=== PATIENT | female | born 1995 | race Caucasian/White ===

== ENCOUNTER 2024-06-12 10:00 | Emergency (ER) | payer OTHER, SELFPAY ==
[2024-06-12 10:02] VITALS: BP 126/79
--- NOTE | 2024-06-12 10:43 | ED.GENMED ---
History of Present Illness
<Shayy Saucedo PA-C - Last Filed: 06/12/24 17:49>
General
Chief Complaint: Crisis Evaluation
Source: patient
Exam Limitations: none
Time Seen by Provider: 06/12/24 10:07
Nursing documentation reviewed up to this point in time: agreed with
History of Present Illness
History of Present Illness:
Patient is a 28-year-old female with history of bipolar disorder, depression, schizophrenia presenting to the emergency department from [facility] for suicidal thoughts. Patient states that she is generally overwhelmed and ashamed of her
history of drug use. She does not feel like getting up in the morning. Patient states that she has been hearing voices telling her to kill herself. Patient does have a plan to overdose on fentanyl. Patient states that she is not currently using
drugs although does not know where to obtain them. Patient would like to be placed inpatient for treatment.
Patient has been clean for the past 2 years from drug use.
Patient has no prior suicidal attempts. She has been inpatient a few times in the past, most recently at [facility].
Last menstrual period 3 weeks ago.
Review of Systems
<Shayy Saucedo PA-C - Last Filed: 06/12/24 17:49>
Review of Systems
Allergies reviewed?: Yes
All Other Systems: ROS reviewed and negative except as documented in HPI and ROS
Phy Exam
<Shayy Saucedo PA-C - Last Filed: 06/12/24 17:49>
Physical Exam
Physical Exam:
Vitals: Patient's vital signs are stable. Afebrile
General: Patient is well appearing, no acute distress
Skin: Warm and dry, no rashes or lesions
Head: Normocephalic, atraumatic
Throat: Protecting airway
Neck: Normal ROM, no cervical spine tenderness
Cardiac: Regular rate and rhythm. Normal heart sounds
Pulm: No apparent respiratory distress. Lungs clear bilaterally.
Abdomen: Nondistended
Extremities: No evidence of cyanosis or edema
Neuro: Grossly intact
Psychiatric: Flat affect.
Course
<Shayy Saucedo PA-C - Last Filed: 06/12/24 17:49>
Orders/Labs/Results
Orders:
Orders
06/12/24 10:05
Crisis Consult Urgent
Reason for Consult: SI
06/12/24 10:32
1:1 Observation - Suicide/ Violent Behavior As Directed
06/12/24 10:38
Test Result ONCE
06/12/24 10:42
Fentanyl, Urine Urgent
HCG, Urine Qualitative Screen Urgent
Date Specimen was Collected: 06/12/24
Time Specimen was Collected: 10:38
Urinalysis Reflex To Culture Urgent
Date Specimen was Collected: 06/12/24
Time Specimen was Collected: 10:38
Urine Drug Abuse Screen Urgent
Date Specimen was Collected: 06/12/24
Time Specimen was Collected: 10:38
Urine Microscopic Reflex Cult Urgent
06/12/24 15:31
Nicotine [Nicoderm Transdermal] 14 mg TRANSDERM NOW STA
Abnormal Lab Results
06/12/24
10:42
Urine Ketones Trace A
(Negative)
Urine Bilirubin 1+ A
(Negative)
Urine Urobilinogen 2+ A
(Neg - 1+)
Leukocyte Esterase Rfl Trace A
(Negative)
Urine Bacteria (Reflex) Few A
(Negative)
Ur Buprenorphine Positive H
(Negative)
Ur Tricyclics Screen Positive H
(Negative)
U Benzodiazepines Scrn Positive H
(Negative)
Vital Signs
Initial and Last Documented VS:
Initial Vital Signs
Temp Pulse Resp BP Pulse Ox
99.4 F 103 18 126/79 95
06/12/24 10:02 06/12/24 10:02 06/12/24 10:02 06/12/24 10:02 06/12/24 10:02
Last Documented Vital Signs
Temp Pulse Resp BP Pulse Ox
98.5 F 95 17 129/76 97
06/12/24 16:00 06/12/24 16:00 06/12/24 16:00 06/12/24 16:00 06/12/24 16:00
<Tab Medley MD - Last Filed: 06/12/24 13:39>
Orders/Labs/Results
Orders:
Orders
06/12/24 10:05
Crisis Consult Urgent
Reason for Consult: SI
06/12/24 10:32
1:1 Observation - Suicide/ Violent Behavior As Directed
06/12/24 10:38
Test Result ONCE
06/12/24 10:42
Fentanyl, Urine Urgent
HCG, Urine Qualitative Screen Urgent
Date Specimen was Collected: 06/12/24
Time Specimen was Collected: 10:38
Urinalysis Reflex To Culture Urgent
Date Specimen was Collected: 06/12/24
Time Specimen was Collected: 10:38
Urine Drug Abuse Screen Urgent
Date Specimen was Collected: 06/12/24
Time Specimen was Collected: 10:38
Urine Microscopic Reflex Cult Urgent
06/12/24 15:31
Nicotine [Nicoderm Transdermal] 14 mg TRANSDERM NOW STA
Abnormal Lab Results
06/12/24
10:42
Urine Ketones Trace A
(Negative)
Urine Bilirubin 1+ A
(Negative)
Urine Urobilinogen 2+ A
(Neg - 1+)
Leukocyte Esterase Rfl Trace A
(Negative)
Urine Bacteria (Reflex) Few A
(Negative)
Ur Buprenorphine Positive H
(Negative)
Ur Tricyclics Screen Positive H
(Negative)
U Benzodiazepines Scrn Positive H
(Negative)
Vital Signs
Initial and Last Documented VS:
Initial Vital Signs
Temp Pulse Resp BP Pulse Ox
99.4 F 103 18 126/79 95
06/12/24 10:02 06/12/24 10:02 06/12/24 10:02 06/12/24 10:02 06/12/24 10:02
Last Documented Vital Signs
Temp Pulse Resp BP Pulse Ox
98.5 F 95 17 129/76 97
06/12/24 16:00 06/12/24 16:00 06/12/24 16:00 06/12/24 16:00 06/12/24 16:00
<Shayy Saucedo PA-C - Last Filed: 06/12/24 17:49>
MDM/Problems Addressed
Differential Diagnosis Includes:
Not limited to: Suicidal ideation, depression, etc
MDM/Problems Addressed:
28-year-old female with history as documented presenting with active suicidal ideations. Patient does report thoughts of suicide with plan to overdose. Patient is hearing voices telling her to kill herself. Patient seeking inpatient
hospitalization. No past suicidal attempts although she has been inpatient for treatment in the past. No homicidal thoughts. Vitals stable. Exam as above. Patient is actively suicidal and I do deem her as a risk to herself. She will require
inpatient treatment. Crisis consult placed. Patient has a 1:1 ordered and will be a safety hold in the department. Patient currently voluntarily seeking inpatient treatment, if this changes will initiate filing of 302. Will closely monitor and
reassess. Disposition pending placement.
Chronic conditions affecting care:
Bipolar disorder, depression, schizophrenia
Acute Exacerbation and/or Progression of Chronic Illness:
Acutely suicidal
<Shayy Saucedo PA-C - Last Filed: 06/12/24 17:49>
*Pulse Oximetry
Patient hypoxic: no
*EKG
Interpreted by ED Provider?: NA
*Cork Insulation Setter Interpretation
Rate: Cork Insulation Setter- N/A
*Critical Care Note
Total Time (30-74mins, 75-104mins- exclusive of procedures): Not Applicable
<Shayy Saucedo PA-C - Last Filed: 06/12/24 17:49>
Update Note
Update Note:
Update 5:47 PM: Patient accepted to [facility]. Stable for discharge.
ED Attending Note
<Shayy Saucedo PA-C - Last Filed: 06/12/24 17:49>
-
Portions of this chart may have been created with voice recognition software.� Occasional wrong word or��sound alike� substitutions may have occurred due to the inherent limitations of voice recognition software.
<Tab Medley MD - Last Filed: 06/12/24 13:39>
ED Attending Note
Patient seen and examined by attending physician: Yes
ED Attending Note:
I have seen and evaluated the patient with a [id number] encounter. I have spoken to the advance practicer provider and involved in the medical history, the physical exam, medical decision making.
Evaluation and management service: agree unless noted differently below.
Results interpretation: agree unless noted differently below.
Focused HPI: 28-year-old female with history as documented presents to the ER for evaluation of depression and suicidal ideation. Patient reports that she has been depressed for years. She has a history of opioid abuse and is maintained on
buprenorphine and, says she has been clean for 2 years. She says that over the past few days she has been more stressed and she has had increasing suicidal ideations. She says she is having command hallucinations where she hears voices telling her
to kill herself. She says that she has a plan to overdose on opiates. She came to the emergency room for help. She denies any homicidal ideation. She denies any physical complaints today.
Physical exam: Awake alert resting comfortably in bed not in distress. Mild tachycardia otherwise normal vitals. She has depressed mood, slightly withdrawn affect.
Medical Decision Makin-year-old female presents with suicidal ideation with a plan associated with hallucinations. Vitals and exam as above. Placed on continuous observation, case discussed with crisis they will work for inpatient placement.
Patient currently is willing to undergo voluntary psychiatric treatment but in my judgment would hold on a 302 if this changes.
Discharge Plan
Departure
Prescriptions:
No Action
lamotrigine 150 mg tablet
150 mg PO BID
acetaminophen 325 mg Tablet
650 mg PO Q8HPRN PRN (Reason: mild pain)
polyethylene glycol 3350 [Miralax] 17 gram Powder In Packet
17 g PO DAILY
ibuprofen 800 mg Tablet
800 mg PO Q6HPRN PRN (Reason: mild pain)
nicotine (polacrilex) 2 mg Gum
2 mg BUCCAL PRN PRN (Reason: smoking cessation)
clozapine 100 mg Tablet
200 mg PO HS
ondansetron HCl 4 mg Tablet
4 mg PO Q8HPRN PRN (Reason: nausea)
spironolactone 100 mg tablet
100 mg PO DAILY
gabapentin 400 mg capsule
400 mg PO BID
olanzapine 5 mg Tablet
5 mg PO BID
oxcarbazepine 300 mg tablet
300 mg PO DAILY
benztropine 1 mg tablet
1 mg PO BID
nicotine 21 mg/24 hr Patch 24 Hour
1 patch TRANSDERMAL DAILY
docusate sodium 100 mg Capsule
100 mg PO BID
omeprazole 20 mg Capsule,Delayed Release(Dr/Ec)
20 mg PO DAILY
oxcarbazepine 600 mg tablet
600 mg PO BID
norgestimate-ethinyl estradiol [Tri-Yina] 0.18/0.215/0.25 mg-35 mcg (28) tablet
1 tab PO DAILY
calcium carbonate [Tums 500] 500 mg calcium (1,250 mg) Tablet,Chewable
500 mg PO Q4HPRN PRN (Reason: indigestion)
clozapine 25 mg Tablet
50 mg PO HS
albuterol sulfate 90 mcg/actuation HFA aerosol inhaler
2 puff INHALATION R Q4HPRN PRN (Reason: sob/wheezing)
fluoxetine 20 mg capsule
20 mg PO BID
nicotine (polacrilex) 2 mg Lozenge
2 mg BUCCAL Q1HPRN PRN (Reason: smoking cessation)
chlorhexidine gluconate 0.12 % mouthwash
15 ml PO BID
Sublocade 100 mg/0.5 mL solution, extended rel syringe
0 mg SC MONTHLY
Referrals:
Bonnie Thompson DO [Family Provider] -
Interventions
Interventions:
*Risk Screen - Suicide Last Done: 06/12/24 10:15
*General Assessment Last Done: 06/12/24 12:21
*Neglect/Abuse Screening Last Done: 06/12/24 10:15
*ED COVID-19 Vaccine History Last Done: 06/12/24 12:21
ED-Psychological Assessment Last Done: 06/12/24 10:30
Discharge Date and Time
Print Language: BULGARIAN
[2024-06-12 10:57] LABS: Urine Albumin Trace (Neg - Trace); Urine Bilirubin 1+ (Negative); Urine Character Slightly Cloudy (Clear); Urine Glucose Negative (Negative); Urine Ketone Trace (Negative); Urine Leukocyte Trace (Negative); Urine Nitrite Negative (Negative); Urine Occult Blood Negative (Negative); Urine Specific Gravity 1.025 (<1.030); Urine Urobilinogen 2+ (Neg - 1+)
[2024-06-12 10:58] LABS: Urine Color Amber
[2024-06-12 11:10] LABS: HCG, Urine Qualitative Screen Negative
[2024-06-12 11:12] LABS: Urine Bacteria Few (Negative); Urine Squamous Cell >30 /LPF (Few)
[2024-06-12 11:13] LABS: Urine Red Blood Cell 0-2 /HPF (0-2)
[2024-06-12 11:21] LABS: Amphetamines Negative (Negative); Barbiturates Negative (Negative); Benzodiazepines Positive (Negative); Buprenorphine Positive (Negative); Cocaine Negative (Negative); Marijuana Negative (Negative); Methadone Negative (Negative); Methamphetamines Negative (Negative); Opiates Negative (Negative); Phencyclidine Negative (Negative); Tricyclic Antidepressants Positive (Negative)
[2024-06-12 12:03] LABS: Fentanyl, Urine Negative (Negative)
[2024-06-12] MEDS: NICODERM TRANSDERMAL 14 MG TRANSDERM (15:53)
[2024-06-12 16:00] VITALS: BP 129/76
== END 2024-06-12 18:10 ==
LOC: EMR 10:00
PROVIDERS: Physician Assistant; EMERGENCY PHYSICIAN Emergency Medicine; FAMILY PHYSICIAN Family Medicine
DX: R45.851 Suicidal ideations (principal); F31.9 Bipolar disorder, unspecified; F20.9 Schizophrenia, unspecified
CPT/HCPCS: 99283; 80306; 80307; 81003; 81015; 81025